=== PATIENT | female | born 1930 | race Two or more races ===

== ENCOUNTER 2017-09-20 10:57 | Outpatient (CLI) | payer OTHER | END 2017-09-20 14:42 | disposition home or self-care (01) | LOC: SONOGRAMA 10:57 | DX: Z12.31 Encounter for screening mammogram for malignant neoplasm of breast (principal) ==

== ENCOUNTER 2017-09-20 11:21 | Outpatient (CLI) | payer OTHER | END 2017-09-20 14:34 | disposition home or self-care (01) | LOC: RAD 11:21 | DX: R06.02 Shortness of breath (principal) ==

== ENCOUNTER → 2017-09-20 | Outpatient (CLI) | payer OTHER | END | disposition home or self-care (01) | LOC: NUCLEAR 10:00 | DX: M81.0 Age-related osteoporosis without current pathological fracture (principal); G45.8 Other transient cerebral ischemic attacks and related syndromes ==

== ENCOUNTER 2020-08-24 13:22 | Outpatient (CLI) | payer OTHER | END 2020-08-24 13:49 | disposition home or self-care (01) | LOC: TOM 13:22 | PROVIDERS: ATTEND Internal Medicine | DX: J84.89 Other specified interstitial pulmonary diseases (principal); Z86.16 Personal history of COVID-19 ==

== ENCOUNTER 2020-09-11 11:00 | Outpatient (CLI) | payer OTHER | END 2020-09-11 11:15 | disposition home or self-care (01) | LOC: TOM 11:00 | PROVIDERS: ATTEND Specialist | DX: S06.5X0A Traumatic subdural hemorrhage without loss of consciousness, initial encounter (principal) ==

== ENCOUNTER 2020-09-21 08:13 | Outpatient (CLI) | payer OTHER | END 2020-09-21 08:30 | disposition home or self-care (01) | LOC: SONOGRAMA 08:13 | PROVIDERS: ATTEND Specialist | DX: Q61.8 Other cystic kidney diseases (principal); I12.9 Hypertensive chronic kidney disease with stage 1 through stage 4 chronic kidney disease, or unspecified chronic kidney disease; N18.2 Chronic kidney disease, stage 2 (mild) ==

== ENCOUNTER 2020-09-28 09:45 | Outpatient (CLI) | payer OTHER | END 2020-09-28 10:18 | disposition home or self-care (01) | LOC: MRI 09:45 | DX: I63.89 Other cerebral infarction (principal) | CPT/HCPCS: 70551 ==